=== PATIENT | female | born 2000 | race Hispanic/Latino ===

== ENCOUNTER 2018-08-14 18:58 | Emergency (ER) | payer OTHER ==
[2018-08-14 19:11] VITALS: TEMP 97.5; O2SAT 99
[2018-08-14] MEDS ORDERED: Sodium Chloride 0.9% 1,000 ML IV STA (19:34)
--- NOTE | 2018-08-14 19:48 | ED PDOC ---
HPI: Headache Time Seen by Provider: 08/14/18 19:23 Chief Complaint (Nursing): Headache Chief Complaint (Provider): headache History Per: Patient History/Exam Limitations: no limitations Onset/Duration Of Symptoms: Hrs Current Symptoms Are (Timing): Still Present Severity: Severe Pain Scale Rating Of: 8 Quality: Aching Preceeding Symptoms: Known Migraine Symptoms Associated Symptoms: Photophobia, Nausea. denies: Blurred Vision, Vomiting, Extremity Weakness Additional History Per: Patient Additional Complaint(s): 18 year old female with a history of Migraines presents to the emergency room c/o headache since this morning after a slip and fall last night at approx 11pm. Patient states she was on her way home and slip on metal stairs striking her head on step. Patient denies LOC. Patient she states she was attempting to study for an exam this afternoon and seemed like she could not focus. She reports she has a history of migraines and she took motrin 800mg twice today with minimal relief which prompted ED visit. Patient reports photophobia, nausea, dizziness, denies vomiting blurry vision, unsteady gait. Past Medical History Reviewed: Historical Data, Nursing Documentation, Vital Signs Vital Signs: Last Vital Signs Temp 97.5 F L 08/14/18 19:08 Pulse 81 08/14/18 19:08 Resp 18 08/14/18 19:08 BP 148/91 H 08/14/18 19:08 Pulse Ox 99 08/14/18 19:08 Primary Care Provider: FAMILY PROVIDER,NO - Medical History PMH: No Chronic Diseases - Surgical History Surgical History: No Surg Hx - Family History Family History: States: Unknown Family Hx - Living Arrangements Living Arrangements: With Family - Social History Alcohol: None Drugs: Denies - Allergies Allergies/Adverse Reactions: Allergies Allergy/AdvReac Type Severity Reaction Status Date / Time No Known Allergies Allergy Verified 08/14/18 19:08 Review of Systems ROS Statement: Except As Marked, All Systems Reviewed And Found Negative Constitutional: Negative for: Fever, Chills, Sweats, Weakness, Malaise Eyes: Negative for: Pain, Conjunctivae Inflammation, Redness Cardiovascular: Negative for: Chest Pain, Palpitations Respiratory: Negative for: Shortness of Breath, SOB with Exertion Gastrointestinal: Positive for: Nausea. Negative for: Vomiting, Abdominal Pain, Diarrhea, Constipation Musculoskeletal: Negative for: Neck Pain, Shoulder Pain, Arm Pain, Back Pain, Hand Pain Skin: Negative for: Rash Neurological: Positive for: Headache, Dizziness. Negative for: Weakness, Numbness, Incoordination, Change in Speech, Confusion, Seizures, Altered Mental Status Physical Exam - Reviewed Nursing Documentation Reviewed: Yes Vital Signs Reviewed: Yes - Physical Exam Appears: Positive for: Well, Non-toxic, No Acute Distress Head Exam: Positive for: NORMAL INSPECTION, NORMOCEPHALIC. Negative for: ATRAUMATIC (point tenderness to area of impact. neg for hematoma, laceration) Skin: Positive for: Normal Color, Warm, DRY Eye Exam: Positive for: Normal appearance, EOMI, PERRL. Negative for: Nystagmus, Periorbital swelling, Periorbital tenderness, Conjunctival injection, Scleral icterus ENT: Positive for: Normal ENT Inspection Neck: Positive for: Normal, Painless ROM, Supple Cardiovascular/Chest: Positive for: Regular Rate, Rhythm. Negative for: Chest Non Tender Respiratory: Positive for: CNT, Normal Breath Sounds Pulses-Radial (L): 2+ Pulses-Radial (R): 2+ Gastrointestinal/Abdominal: Positive for: Normal Exam, Soft. Negative for: Tenderness Back: Positive for: Normal Inspection. Negative for: L CVA Tenderness, R CVA Tenderness Extremity: Positive for: Normal ROM Neurological/Psych: Positive for: Awake, Alert (patient answering all questions appropriately, patient recalls all events leading to and after injury), Normal Tone, Age Appropriate, Oriented, Gait (steady), Motor/Sensory Deficits (negative ), web operations specialist II-XII (intact). Negative for: Lethargic, Listless, Facial Droop - ECG O2 Sat by Pulse Oximetry: 99 Medical Decision Making Medical Decision Making: --0.9NS --reglan --Tylenol --Re-eval 1999 114/68 hr: 60 Patient endorsed to Sathya Ibrahim PA-c for re-evaluation after medications given. Disposition - Clinical Impression Clinical Impression: Headache - Patient ED Disposition Is Patient to be Admitted: Transfer of Care - Disposition Disposition: Transfer of Care Disposition Time: 20:00 Condition: STABLE Forms: [employer] ([place]vian) Patient Signed Over To: Sathya Ibrahim Handoff Comments: re-assess after meds - POA Present On Arrival: None
[2018-08-14 20:07] VITALS: BP 114/68; PULSE 60; RESP 16
--- NOTE | 2018-08-14 20:11 | ED PDOC ---
- ECG O2 Sat by Pulse Oximetry: 99 - Progress ED Course And Treament: D/W PATIENT RISKS AND BENEFITS OF CT EVALUATION OF HEAD INJURY. PATIENT DECLINED CT. WOULD LIKE NOTE TO BE EXCUSED FROM EXAMS. Disposition - Clinical Impression Clinical Impression: Headache - POA Present On Arrival: None - Disposition Disposition: Routine/Home Disposition Time: 21:39 Condition: STABLE Prescriptions: Naproxen 375 mg PO Q8 PRN #15 tablet PRN Reason: Headache Instructions: Headache, Adult (DC), Closed Head Injury Forms: [facility] ED School/Work Excuse
== END 2018-08-14 22:11 | disposition home or self-care (01) ==
LOC: H.ER 18:58
DX: S09.90XA Unspecified injury of head, initial encounter (principal); R51 Headache; W10.9XXA Fall (on) (from) unspecified stairs and steps, initial encounter
CPT/HCPCS: 81025; 96374; 99285; J2765; J7030